=== PATIENT | male | born 1945 | race Caucasian/White ===

== ENCOUNTER 2019-03-15 21:36 | Emergency (ER) | payer MEDICARE ==
[~2019-03-15] VITALS: Ht 175.3 cm; Wt 86.2 kg
[2019-03-15] MEDS ORDERED: ALBUTEROL/IPRATROPIUM 3 ML NEB ONE (22:04)
[2019-03-15] MEDS ORDERED: ALBUTEROL/IPRATROPIUM 3 ML NEB NEB ONE (22:15)
--- NOTE | 2019-03-15 22:27 | Diagnostic Imaging Report ---
EXAMINATION: CXR 1 W - HOP INDICATION: Cough. COMPARISON: None FINDINGS: TUBES and LINES: None. LUNGS: Lungs are moderately inflated. There are patchy opacities at the left lung base. No evidence of pulmonary edema. Central vascular congestion. PLEURA: No pleural effusion or pneumothorax. HEART AND MEDIASTINUM: The cardiomediastinal silhouette is unremarkable. There are atherosclerotic calcifications within the aorta. BONES AND SOFT TISSUES: No acute osseous lesion. Status post median sternotomy. UPPER ABDOMEN: No free air under the diaphragm. IMPRESSION: Patchy opacities at left lung base, which may reflect pneumonia or atelectasis in the appropriate clinical setting. Suggest follow-up chest radiograph in 6-8 weeks to assess for resolution. Signed by: Dr. Laith Short MD on 03/15/2019 10:23 PM
== END 2019-03-15 22:48 | disposition home or self-care (01) ==
LOC: FSED 21:36
DX: J20.9 Acute bronchitis, unspecified (principal); J02.0 Streptococcal pharyngitis; I10 Essential (primary) hypertension; E11.9 Type 2 diabetes mellitus without complications; I25.10 Atherosclerotic heart disease of native coronary artery without angina pectoris; Z95.1 Presence of aortocoronary bypass graft
CPT/HCPCS: 71045; 83518; 87400; 99283

== ENCOUNTER 2020-07-03 03:31 | Emergency (ER) | payer MEDICARE ==
[~2020-07-03] VITALS: Ht 175.3 cm; Wt 86.2 kg
[2020-07-03] MEDS ORDERED: FAMOTIDINE 20 MG/2 ML VIAL IV STA (04:08)
[2020-07-03] MEDS ORDERED: ONDANSETRON HCL INJ 2MG/ML 2ML 2 MG/ML VIAL IV STA (04:08)
[2020-07-03] MEDS ORDERED: SODIUM CHLORIDE 0.9% 1000ML 1,000 ML IV SCH (04:15)
[2020-07-03] MEDS ORDERED: ONDANSETRON HCL INJ 2MG/ML 2ML 2 MG/ML VIAL ONE (04:24)
[2020-07-03] MEDS ORDERED: SODIUM CHLORIDE 0.9% 1000ML 1,000 ML ONE (04:24)
[2020-07-03] MEDS ORDERED: FAMOTIDINE 20 MG/2 ML VIAL IV ONE (04:25)
[2020-07-03] MEDS ORDERED: PENICILLIN V P500 MG PO (04:47)
== END 2020-07-03 05:09 | disposition home or self-care (01) ==
LOC: FSED 03:56
DX: M96.830 Postprocedural hemorrhage of a musculoskeletal structure following a musculoskeletal system procedure (principal); E11.65 Type 2 diabetes mellitus with hyperglycemia; D72.829 Elevated white blood cell count, unspecified; I10 Essential (primary) hypertension; I25.10 Atherosclerotic heart disease of native coronary artery without angina pectoris; I25.2 Old myocardial infarction; Z95.5 Presence of coronary angioplasty implant and graft
CPT/HCPCS: 80048; 85025; 99283; J2405; J7030